=== PATIENT | male | born 1935 | race Caucasian/White ===

== ENCOUNTER 2019-08-20 11:38 | Emergency (ER) | payer MEDICARE ==
[~2019-08-20] VITALS: Ht 170.2 cm; Wt 90.0 kg
[2019-08-20 12:14] VITALS: BP 154/76
--- NOTE | 2019-08-20 13:04 | NUR ---
US tech at bedside for doppler as ordered.
--- NOTE | 2019-08-20 13:25 | NUR ---
relieving RN for break, cardiothoracic anesthesia technician at bedside
== END 2019-08-20 13:45 | disposition home or self-care (01) ==
LOC: ER 11:39
DX: M79.661 Pain in right lower leg (principal); M25.511 Pain in right shoulder; M25.512 Pain in left shoulder; G89.29 Other chronic pain; Z88.6 Allergy status to analgesic agent; Z88.5 Allergy status to narcotic agent
CPT/HCPCS: 93971; 99284

== ENCOUNTER 2019-09-03 08:35 | Emergency (ER) | payer MEDICARE ==
[~2019-09-03] VITALS: Ht 171.4 cm; Wt 81.8 kg
[2019-09-03] MEDS ORDERED: ondansetron/PF 4mg/2ml inj IV ONE (09:35)
[2019-09-03] MEDS ORDERED: morphine 4 MG/ML inj SYRINge IV ONE (09:35)
[2019-09-03] MEDS ORDERED: normal saline 1000ML IV soln IV ONE (09:40)
[2019-09-03 10:18] LABS: BASOPHILS % (AUTO) 0.3 % (0-1); EOSINOPHILS # (AUTO) 0.1 X10'3 (0-0.9); EOSINOPHILS % (AUTO) 0.9 % (0-6); HEMATOCRIT 48.7 % (42.0-52.0); HEMOGLOBIN 16.6 g/dl (14.0-17.9); LYMPHOCYTES % (AUTO) 7.5 % (21-51); MEAN CORPUSCULAR HEMOGLOBIN 33.1 PG (27.0-31.0); MEAN CORPUSCULAR VOLUME 97.2 FL (78-98); MEAN PLATELET VOLUME 7.1 FL (7.4-10.4); MONOCYTES # (AUTO) 0.9 X10'3 (0-0.9); MONOCYTES % (AUTO) 6.9 % (2-12); NEUTROPHILS # (AUTO) 11.5 X10'3 (1.8-7.7); NEUTROPHILS % (AUTO) 84.4 % (42-75); PLATELET COUNT 446 X10'3 (140-440); RED BLOOD COUNT 5.01 X10'6 (4.70-6.10); RED CELL DISTRIBUTION WIDTH 13.4 % (11.5-14.5); WHITE BLOOD COUNT 13.6 X10'3 (4.5-11.0)
[2019-09-03 10:30] LABS: ALANINE AMINOTRANSFERASE 25 U/L (12-78); ALBUMIN 3.9 G/DL (3.4-5.0); ALBUMIN/GLOBULIN RATIO 0.8 (1.1-1.5); ALKALINE PHOSPHATASE 80 IU/L (46-116); ANION GAP 8 (8-16); ASPARTATE AMINO TRANSFERASE 23 U/L (10-37); BILIRUBIN,TOTAL 1.1 MG/DL (0.1-1.0); BLOOD UREA NITROGEN 30 MG/DL (7-18); BUN/CREATININE RATIO 19.6 (5.4-32.0); CALCIUM 9.5 MG/DL (8.5-10.1); CHLORIDE 100 MMOL/L (99-107); CREATININE 1.53 MG/DL (0.60-1.10); GLUCOSE 111 MG/DL (70-104); LIPASE 188 U/L (73-393); POTASSIUM 5.1 MMOL/L (3.5-5.1); SODIUM 135 MMOL/L (135-145); TOTAL CARBON DIOXIDE 27.4 MMOL/L (24-32); TOTAL PROTEIN 8.8 G/DL (6.4-8.2); eGFR 44 ML/MIN
[2019-09-03 12:09] LABS: CLARITY,URINE CLEAR (Clear); COLOR,URINE YELLOW (Yellow); GLUCOSE, URINE NEGATIVE (Neg); KETONES,URINE NEGATIVE (Neg); LEUKOCYTE ESTERASE ,URINE SMALL (Neg); NITRITES, URINE NEGATIVE (Neg); OCCULT BLOOD,URINE NEGATIVE (Neg); PROTEIN,URINE NEGATIVE (Neg)
[2019-09-03 12:14] LABS: UA COLLECTION TYPE CLN CATCH MIDSTREAM
[2019-09-03 12:16] LABS: SQUAMOUS EPITHELIAL CELL,UR MODERATE /LPF (FEW)
[2019-09-03 12:18] LABS: MUCUS STRANDS FEW /LPF (Neg); RBC,URINE 0-2 /HPF (0-2)
[2019-09-03 12:19] LABS: BACTERIA,URINE 1+ /HPF (Neg)
[2019-09-03] MEDS ORDERED: CEPH250T PO (12:39)
[2019-09-03] MEDS ORDERED: ONDA4TAB6 PO (12:39)
[2019-09-03 13:34] VITALS: BP 107/78
== END 2019-09-03 13:30 | disposition home or self-care (01) ==
LOC: ER 08:35
DX: N39.0 Urinary tract infection, site not specified (principal); R11.0 Nausea; M25.511 Pain in right shoulder; M25.512 Pain in left shoulder; M19.90 Unspecified osteoarthritis, unspecified site; Z86.718 Personal history of other venous thrombosis and embolism; Z60.2 Problems related to living alone; Z88.6 Allergy status to analgesic agent; Z88.5 Allergy status to narcotic agent; Z79.2 Long term (current) use of antibiotics; Z79.899 Other long term (current) drug therapy
CPT/HCPCS: 36415; 71045; 80053; 81001; 83605; 83690; 84145; 84484; 85025; 87040; 87088; 87186; 87502; 87503; 93005; 96374; 96375; 99285; J2270; J2405; J7030; 87077